=== PATIENT | female | born 1980 | race Two or more races ===

== ENCOUNTER 2017-05-23 15:16 | Emergency (ER) | payer BC ==
[~2017-05-23] VITALS: Ht 167.6 cm; Wt 63.5 kg
[2017-05-23] MEDS ORDERED: ONDANSETRON HCL 4 MG/2 ML VIAL IV ONE (16:15)
[2017-05-23] MEDS ORDERED: MORPHINE SULFATE 4 MG/ML SYR/VIAL IV ONE ×2 (16:15→17:15)
[2017-05-23 16:56] LABS: Basophils # (auto) 0 uL; Basophils % (auto) 0.4 % (0.0-2.0); Eosinophils # (auto) 0.2 uL; Eosinophils % (auto) 2.9 % (0.0-7.0); Hemoglobin 11.7 g/dL (12.2-16.2); Lymphocytes # (auto) 2.5 uL; Lymphocytes % (auto) 42.4 % (10.0-50.0); Mean Corpuscular Hemoglobin 29.4 pg (28.0-32.0); Mean Corpuscular Hgb Conc. 34.4 g/dL (32.0-36.0); Mean Corpuscular Volume 85.3 fL (80.0-100.0); Monocytes # (auto) 0.3 uL; Monocytes % (auto) 4.5 % (0.0-12.0); Neutrophils # (auto) 2.9 uL; Neutrophils % (auto) 49.8 % (37.0-80.0); Nucleated Red Blood Cells % 0.1 %; Platelet Count (auto) 235 10^3/uL (140-450); Red Blood Cells 3.99 10^6/uL (4.0-5.20); Red Cell Distribution Width 13.9 % (11.8-14.3); White Blood Cell 5.9 10^3/uL (4.4-10.8)
[2017-05-23 16:58] LABS: Albumin 3.9 g/dL (3.4-5.0); Calcium 8.6 mg/dL (8.5-10.1); Potassium 4.6 mmol/L (3.5-5.1)
[2017-05-23 17:00] LABS: BUN/Creatinine Ratio 14.7
[2017-05-23 17:06] LABS: Bilirubin, Total 0.3 mg/dL (0.2-1.0); Total Protein 7.9 g/dL (6.4-8.2)
[2017-05-23 17:25] LABS: Prothrombin Time 10.9 sec (9.37-12.3)
[2017-05-23] MEDS ORDERED: ETOMIDATE (2MG/ML) 20ML VIAL IV ONE (18:30)
[2017-05-23 21:00] VITALS: BP 113/69
== END 2017-05-23 21:26 | disposition home or self-care (01) ==
LOC: ER 15:16 → EDBD 15:16 → EDSEX 15:16 → ER 21:26
DX: T84.021A Dislocation of internal left hip prosthesis, initial encounter (principal); E11.9 Type 2 diabetes mellitus without complications; W01.0XXA Fall on same level from slipping, tripping and stumbling without subsequent striking against object, initial encounter; Y93.89 Activity, other specified; Y99.8 Other external cause status; Y92.89 Other specified places as the place of occurrence of the external cause
CPT/HCPCS: 27265; 36415; 73502; 73552; 80053; 85025; 85610; 94761; 96374; 96375; 96376; 99285; J2270; J2405

== ENCOUNTER 2017-09-19 21:22 | Inpatient (IN) | payer BC ==
[~2017-09-19] VITALS: Ht 162.6 cm; Wt 63.5 kg
[2017-09-19 22:30] LABS: Basophils # (auto) 0 uL; Eosinophils # (auto) 0.1 uL; Eosinophils % (auto) 1.9 % (0.0-7.0); Hematocrit 34.7 % (36.0-46.0); Hemoglobin 11.9 g/dL (12.2-16.2); Lymphocytes # (auto) 2.4 uL; Lymphocytes % (auto) 51.7 % (10.0-50.0); Mean Corpuscular Hemoglobin 29.1 pg (28.0-32.0); Mean Corpuscular Hgb Conc. 34.4 g/dL (32.0-36.0); Mean Corpuscular Volume 84.7 fL (80.0-100.0); Monocytes # (auto) 0.2 uL; Monocytes % (auto) 5.1 % (0.0-12.0); Neutrophils # (auto) 1.9 uL; Neutrophils % (auto) 41.3 % (37.0-80.0); Nucleated Red Blood Cells % 0.1 %; Platelet Count (auto) 198 10^3/uL (140-450); Red Cell Distribution Width 13.9 % (11.8-14.3); White Blood Cell 4.6 10^3/uL (4.4-10.8)
[2017-09-19 22:53] LABS: Albumin 4.1 g/dL (3.4-5.0); Bilirubin, Total 0.4 mg/dL (0.2-1.0); Calcium 8.8 mg/dL (8.5-10.1); Potassium 3.2 mmol/L (3.5-5.1); Total Protein 7.7 g/dL (6.4-8.2)
[2017-09-19] MEDS ORDERED: ONDANSETRON HCL 4 MG/2 ML VIAL IV ONE (23:15)
[2017-09-19] MEDS ORDERED: MEPERIDINE HCL (50 MG/ML) 1 ML VIAL IV ONE (23:15)
[2017-09-20] MEDS ORDERED: MEPERIDINE HCL (50 MG/ML) 1 ML VIAL ONE (00:28)
[2017-09-20] MEDS ORDERED: MEPERIDINE HCL (50 MG/ML) 1 ML VIAL IV ONE ×2 (00:30)
[2017-09-20] MEDS ORDERED: ACETAMINOPHEN 500 MG TAB PO PRN (05:00)
[2017-09-20] MEDS ORDERED: POTASSIUM CHL 20 Meq TABLET PO ONE (05:00)
[2017-09-20] MEDS ORDERED: traMADol HCL 50 MG TAB PO PRN (05:00)
[2017-09-20] MEDS: MORPHINE SULF INJ 2 MG/ML SYRINGE 1ML IV PRN ×2 (05:32→10:09)
[2017-09-20] MEDS: ONDANSETRON HCL 4 MG/2 ML VIAL IV PRN ×2 (05:33→10:09)
[2017-09-20 07:21] LABS: Basophils # (auto) 0 uL; Basophils % (auto) 0.1 % (0.0-2.0); Eosinophils # (auto) 0.1 uL; Eosinophils % (auto) 1.2 % (0.0-7.0); Hematocrit 32.5 % (36.0-46.0); Hemoglobin 11.3 g/dL (12.2-16.2); Lymphocytes # (auto) 1.9 uL; Lymphocytes % (auto) 39.2 % (10.0-50.0); Mean Corpuscular Hemoglobin 29.6 pg (28.0-32.0); Mean Corpuscular Hgb Conc. 34.7 g/dL (32.0-36.0); Mean Corpuscular Volume 85.2 fL (80.0-100.0); Monocytes # (auto) 0.4 uL; Monocytes % (auto) 7.5 % (0.0-12.0); Neutrophils # (auto) 2.5 uL; Nucleated Red Blood Cells % 0.1 %; Platelet Count (auto) 190 10^3/uL (140-450); Red Blood Cells 3.81 10^6/uL (4.0-5.20); Red Cell Distribution Width 13.8 % (11.8-14.3); White Blood Cell 4.8 10^3/uL (4.4-10.8)
[2017-09-20 07:41] LABS: BUN/Creatinine Ratio 18.5; Calcium 8.3 mg/dL (8.5-10.1); Potassium 4.3 mmol/L (3.5-5.1)
[2017-09-20] MEDS: MEPERIDINE HCL (50 MG/ML) 1 ML VIAL IV ONE ×2 (11:56→12:19)
[2017-09-20] MEDS: PROMETHAZINE HCL 25 MG/ML 1ML IV ONE ×2 (11:56→12:19)
[2017-09-20 14:27] LABS: INR 1.03 (0.9-1.15); Partial Thromboplastin Time 28.3 sec (23.78-33.04)
[2017-09-20] MEDS ORDERED: LIDOCAINE 1% (LOCAL ANESTH.) PF 5ml SDV ONE (16:13)
[2017-09-20] MEDS ORDERED: LIDOCAINE W/ EPINEPHRINE 2% INJ 20ML VIAL ONE (16:13)
[2017-09-20] MEDS ORDERED: SUCCINYLCHOLINE CHLORIDE 20 MG/ML 10ML VIAL IV ONE (16:13)
[2017-09-20] MEDS ORDERED: BUPIVACAINE HCL 50 ML ONE (16:14)
[2017-09-20] MEDS ORDERED: NALOXONE HCL 0.4 MG/ML VIAL IV PRN (16:15)
[2017-09-20] MEDS ORDERED: ONDANSETRON HCL 4 MG/2 ML VIAL IV ONE (16:15)
[2017-09-20] MEDS ORDERED: MIDAZOLAM HCL 1MG/1ML-2 ML VIAL ONE (16:15)
[2017-09-20] MEDS ORDERED: MORPHINE SULF INJ 2 MG/ML SYRINGE 1ML IV PRN (16:15)
[2017-09-20] MEDS ORDERED: PROPOFOL 10 MG/ML 20 ML IV ONE (17:01)
[2017-09-20] MEDS ORDERED: ROCURONIUM 10MG/ML 10ML VIAL IV ONE (17:01)
[2017-09-20] MEDS ORDERED: fentaNYL CITRATE 100 MCG/2 ML VL ONE (17:13)
[2017-09-20] MEDS ORDERED: NEOSTIGMINE 1 MG/ML INJ (10mg/10ML VIAL) ONE (17:23)
[2017-09-20] MEDS ORDERED: GLYCOPYRROLATE 0.2 MG/ML 1ML VIAL ONE (17:23)
[2017-09-20 18:25] VITALS: BP 118/55
== END 2017-09-20 18:40 | disposition home or self-care (01) | DRG 561 ==
LOC: EDBD 21:22 → ER 21:33 → OVERFLOW 21:34
PROVIDERS: ADMIT Nurse Practitioner Family; ATTEND Internal Medicine
PROC: 0SWBXJZ Revision of Synthetic Substitute in Left Hip Joint, External Approach (ICD-10-PCS; principal; 2017-09-20 17:01)
DX: T84.021A Dislocation of internal left hip prosthesis, initial encounter (principal); E11.9 Type 2 diabetes mellitus without complications; E87.6 Hypokalemia; Y79.2 Prosthetic and other implants, materials and accessory orthopedic devices associated with adverse incidents; W18.39XA Other fall on same level, initial encounter; Y93.89 Activity, other specified; Y92.89 Other specified places as the place of occurrence of the external cause; Y99.8 Other external cause status
CPT/HCPCS: 36415; 71045; 73501; 80048; 80053; 82962; 83036; 84702; 85025; 85610; 85730; 96374; 96375; 96376; J0330; J2250; J2405; J2704; J3490